=== PATIENT | male | born 2000 | race Two or more races ===

== ENCOUNTER 2021-12-18 00:13 | Emergency (ER) | payer OTHER ==
[~2021-12-18] VITALS: Ht 185.4 cm; Wt 81.6 kg
[2021-12-18 01:17] VITALS: BP 106/87
[2021-12-18] MEDS ORDERED: GLUCAGON HYDROCHLORIDE (RDNA) 1 MG VIAL IV ONE ×2 (02:15→04:00)
== END 2021-12-18 06:22 | disposition home or self-care (01) ==
LOC: EDSEX 00:13 → ER 00:13
DX: T18.128A Food in esophagus causing other injury, initial encounter (principal); W22.8XXA Striking against or struck by other objects, initial encounter; Y93.89 Activity, other specified; Y92.89 Other specified places as the place of occurrence of the external cause; Y99.8 Other external cause status
CPT/HCPCS: 70490; 96374; 96376; 99284; J1610

== ENCOUNTER 2021-12-26 01:25 | Emergency (ER) | payer OTHER ==
[~2021-12-26] VITALS: Ht 182.9 cm; Wt 77.1 kg
[2021-12-26 02:20] VITALS: BP 137/88
[2021-12-26] MEDS ORDERED: PANTOPRAZOLE 40 MG TAB PO ONE (02:30)
[2021-12-26] MEDS ORDERED: ALPRAZolam 0.25 MG TAB PO ONE (02:30)
[2021-12-26] MEDS ORDERED: OMEP20TA PO (03:24)
== END 2021-12-26 04:11 | disposition home or self-care (01) ==
LOC: ER 01:25
DX: K21.9 Gastro-esophageal reflux disease without esophagitis (principal); T18.108D Unspecified foreign body in esophagus causing other injury, subsequent encounter; Z79.899 Other long term (current) drug therapy; X58.XXXD Exposure to other specified factors, subsequent encounter
CPT/HCPCS: 70490

== ENCOUNTER 2023-03-28 02:49 | Emergency (ER) | payer OTHER ==
[~2023-03-28] VITALS: Ht 182.9 cm; Wt 67.6 kg
[~2023-03-28 02:49] MED LIST: OMEP20TA PO
[2023-03-28 03:21] LABS: Basophils # (auto) 0.1 10 ^3/uL (0-0.2); Eosinophils # (auto) 0.2 10 ^3/uL (0-0.8); Eosinophils % (auto) 1.8 % (0.0-7.0); Hematocrit 46.4 % (41.0-53.0); Hemoglobin 16.2 g/dL (13.5-17.5); Lymphocytes # (auto) 4.5 10 ^3/uL (0.4-5.4); Lymphocytes % (auto) 48.2 % (10.0-50.0); Mean Corpuscular Hemoglobin 30.3 pg (28.0-32.0); Mean Corpuscular Volume 86.7 fL (80.0-100.0); Monocytes # (auto) 0.6 10 ^3/uL (0-1.3); Monocytes % (auto) 6.8 % (0.0-12.0); Neutrophils % (auto) 42.2 % (37.0-80.0); Nucleated Red Blood Cells % 0.2 %; Red Blood Cells 5.35 10^6/uL (4.5-5.90); Red Cell Distribution Width 13.3 % (11.8-14.3); White Blood Cell 9.4 10^3/uL (4.4-10.8)
[2023-03-28 03:39] LABS: Albumin 5.2 g/dL (3.4-5.0); Calcium 9.8 mg/dL (8.5-10.1); Potassium 3.3 mmol/L (3.5-5.1)
[2023-03-28 03:43] LABS: BUN/Creatinine Ratio 9.2 (10.0-20.0)
[2023-03-28 05:53] VITALS: BP 119/84
[2023-03-28] MEDS ORDERED: POTASSIUM EFFERVESENT TAB 25 MEQ PO ONE (06:00)
[2023-03-28 06:52] LABS: Urine Bacteria NONE SEEN /hpf (None Seen); Urine Blood Negative /uL (Negative); Urine Mucus FEW (None Seen); Urine Specific Gravity 1.022 (1.001-1.035); Urine Sperm PRESENT /hpf (None Seen); Urine WBC 1 /hpf (0 - 3)
== END 2023-03-28 06:01 | disposition home or self-care (01) ==
LOC: ER 02:49
DX: N43.3 Hydrocele, unspecified (principal); E87.6 Hypokalemia
CPT/HCPCS: 36415; 74176; 76870; 80053; 81001; 85025

== ENCOUNTER 2024-11-12 01:14 | Emergency (ER) | payer MEDICAID, OTHER ==
[~2024-11-12] VITALS: Ht 185.4 cm; Wt 70.8 kg
[2024-11-12 02:57] LABS: Alanine Aminotransferase 23 U/L (7-40); Alkaline Phosphatase 92 U/L (46-116); Anion Gap 8 (5-15); Aspartate Aminotransferase 17 U/L (13-40); BUN/Creatinine Ratio 13.1 (10.0-20.0); Blood Urea Nitrogen 11 mg/dL (9-23); Carbon Dioxide 26 mmol/L (20-31); Chloride 105 mmol/L (98-107); Potassium 3.7 mmol/L (3.5-5.1); Sodium 139 mmol/L (136-145); Total Protein 7.8 g/dL (5.7-8.2)
[2024-11-12 02:59] LABS: Basophils # (auto) 0.1 10 ^3/uL (0-0.2); Basophils % (auto) 0.8 % (0.0-2.0); Eosinophils # (auto) 0.4 10 ^3/uL (0-0.8); Eosinophils % (auto) 3.9 % (0.0-7.0); Hematocrit 48.3 % (41.0-53.0); Hemoglobin 16.5 g/dL (13.5-17.5); Lymphocytes # (auto) 4.6 10 ^3/uL (0.4-5.4); Lymphocytes % (auto) 42.9 % (10.0-50.0); Mean Corpuscular Hgb Conc. 34.2 g/dL (32.0-36.0); Mean Corpuscular Volume 90.5 fL (80.0-100.0); Monocytes % (auto) 9.1 % (0.0-12.0); Neutrophils # (auto) 4.6 10 ^3/uL (1.6-8.6); Neutrophils % (auto) 43.3 % (37.0-80.0); Nucleated Red Blood Cells % 0.1 %; Platelet Count (auto) 322 10^3/uL (140-450); Red Blood Cells 5.34 10^6/uL (4.5-5.90); Red Cell Distribution Width 12.7 % (11.8-14.3); White Blood Cell 10.7 10^3/uL (4.4-10.8)
[2024-11-12 03:02] LABS: Albumin 5.3 g/dL (3.2-4.8); Calcium 10.7 mg/dL (8.7-10.4); Glucose 117 mg/dL (74-106)
[2024-11-12] MEDS ORDERED: ZOFR4T PO (05:25)
--- NOTE | 2024-11-12 05:25 | ED.PDOC ---
General HPI Comments 23-year-old male presents with 3 hours of right upper quadrant abdominal pain associated with some nausea. Patient reports the pain is now relieved. The pain was 4/10 and achy in nature. Denies any fever chills or diarrhea. Chief Complaint: Abdominal Pain Time Seen by MD: 01:24 Allergies: Coded Allergies: NO KNOWN ALLERGIES (Unverified , 12/18/21) Home Meds Active Scripts Omeprazole (Gnp Omeprazole) 20 Mg Tab, 1 TAB PO DAILY, #30 TAB 0 Refills Prov:VERN DUVAL 12/26/21 Mode of Arrival: Ambulatory Past Medical History PAST MEDICAL HISTORY: Denies Surgical History: Denies all surgeries Family History Family History: Reviewed,noncontributory to illness, No family hx of Cancer, No family hx of DM, No family hx of Heart zahra, No family hx of HTN, No family hx ofKidney zahra, No family hx of Liver zahra, No family hx of Lung zahra, No family hx of Stroke Social History Smoker: Non-Smoker Alcohol: Denies ETOH Use Drugs: Denies Drug Use Lives In: Home Physical Exam General Appearance: No Apparent Distress, Normal HEENT: Normal ENT Inspection, Pharynx Normal, TMs Normal Neck: Full Range of Motion, Non-Tender, Normal, Normal Inspection Respiratory: Chest Non-Tender, Lungs Clear, No Accessory Muscle Use, No Respiratory Distress, Normal Breath Sounds Cardiovascular: No Edema, No JVD, No Murmur, No Gallop, Normal Peripheral Pulses, Regular Rate/Rhythm Breast Exam: Deferred Gastrointestinal: No Organomegaly, Non Tender, No Pulsatile Mass, Normal Bowel Sounds, Soft Genitalia: Deferred Pelvic: Deferred Rectal: Deferred Extremities: No calf tenderness, Normal capillary refill, Normal inspection, Normal range of motion, Non-tender, No pedal edema Musculoskeletal : Apperance: Normal Neurologic: Alert, luggage attendant II-XII nml as Tested, No Motor Deficits, Normal Affect, Normal Mood, No Sensory Deficits Cerebellar Function: Normal Reflexes: Normal Skin: Dry, Normal Color, Warm Lymphatic: No Adenopathy Was a procedure done? Was a procedure done?: No Differential Diagnosis Kidney stone (Female): N/A Kidney stone (Male): N/A Penile/Scrotal: N/A Urinary Problem (Male): N/A Urinary Problem (Female): N/A Other Differential Diagnosis Viral syndrome, gastroenteritis X-Ray, Labs, Meds, VS Vital Signs Date Time Temp Pulse Resp B/P (MAP) Pulse Ox O2 Delivery O2 Flow Rate FiO2 11/12/24 01:39 99.4 102 18 128/74 (92) 97 Lab Test 11/12/24 02:29 Range/Units White Blood Count 10.7 4.4-10.8 10^3/uL Red Blood Count 5.34 4.5-5.90 10^6/uL Hemoglobin 16.5 13.5-17.5 g/dL Hematocrit 48.3 41.0-53.0 % Mean Corpuscular Volume 90.5 80.0-100.0 fL Mean Corpuscular Hemoglobin 31.0 28.0-32.0 pg Mean Corpuscular Hemoglobin Concent 34.2 32.0-36.0 g/dL Red Cell Distribution Width 12.7 11.8-14.3 % Platelet Count 322 140-450 10^3/uL Mean Platelet Volume 7.1 6.9-10.8 fL Neutrophils (%) (Auto) 43.3 37.0-80.0 % Lymphocytes (%) (Auto) 42.9 10.0-50.0 % Monocytes (%) (Auto) 9.1 0.0-12.0 % Eosinophils (%) (Auto) 3.9 0.0-7.0 % Basophils (%) (Auto) 0.8 0.0-2.0 % Neutrophils # (Auto) 4.6 1.6-8.6 10 ^3/uL Lymphocytes # (Auto) 4.6 0.4-5.4 10 ^3/uL Monocytes # (Auto) 1.0 0-1.3 10 ^3/uL Eosinophils # (Auto) 0.4 0-0.8 10 ^3/uL Basophils # (Auto) 0.1 0-0.2 10 ^3/uL Nucleated Red Blood Cells 0.1 % Sodium Level 139 136-145 mmol/L Potassium Level 3.7 3.5-5.1 mmol/L Chloride Level 105 98-107 mmol/L Carbon Dioxide Level 26 20-31 mmol/L Anion Gap 8 5-15 Blood Urea Nitrogen 11 9-23 mg/dL Creatinine 0.84 0.700-1.30 mg/dL Glomerular Filtration Rate Calc 124 >90 mL/min BUN/Creatinine Ratio 13.1 10.0-20.0 Serum Glucose 117 H 74-106 mg/dL Calcium Level 10.7 H 8.7-10.4 mg/dL Total Bilirubin 1.0 0.2-1.0 mg/dL Aspartate Amino Transferase (AST) 17 13-40 U/L Alanine Aminotransferase (ALT) 23 7-40 U/L Alkaline Phosphatase 92 46-116 U/L Total Protein 7.8 5.7-8.2 g/dL Albumin 5.3 H 3.2-4.8 g/dL Time of 1ST Reevaluation: 05:24 Reevaluation 1ST: Improved Patient Education/Counseling: Diagnosis, Treatment Family Education/Counseling: No Family Present Departure 1 Departure Time of Disposition: 05:24 (Patient's workup is benign. He likely has gastroenteritis. We will discharge patient home with outpatient follow up) Impression: Primary Impression: Acute gastroenteritis Disposition: 01 HOME / SELF CARE / HOMELESS Condition: Stable Additional Instructions: You likely have gastroenteritis. It is important to stay well hydrated and well rested. This usually resolves within 1 week. If your symptoms worsen or you have any other concerns please return to the ER. e-Prescriptions Ondansetron Odt 4MG Tab (ZOFRAN PO) 4 Mg Tb 4 MG PO QID PRN for 4 Days, #16 TAB ODT TAB-DISSOLVE IN MOUTH, THEN SWALLOW Prov: JULIOCESAR ALCANTAR MD 11/12/24 Discharged With: Self Critical Care Note Critical Care Time?: No Stability Stability form required: No JULIOCESAR ALCANTAR MD Nov 12, 2024 05:25
[2024-11-12 05:52] VITALS: BP 117/72; PULSE 55; RESP 16; TEMP 97.6; O2SAT 99
[2024-11-12 06:00] LABS: Urine Bacteria None Seen /hpf (None Seen)
[2024-11-12 06:43] LABS: Urine Blood Negative /uL (Negative); Urine Clarity Clear (Clear); Urine Color Yellow (Yellow); Urine Hyaline Cast FEW /lpf (0 - 2); Urine Mucus FEW (None Seen); Urine Protein, UAD TRACE (Negative); Urine Urobilinogen 2 mg/dL (Negative); Urine WBC 1 /hpf (0 - 3)
== END 2024-11-12 06:00 | disposition home or self-care (01) ==
LOC: ER 01:14
DX: K52.9 Noninfective gastroenteritis and colitis, unspecified (principal); Z79.899 Other long term (current) drug therapy
CPT/HCPCS: 36415; 80053; 81001; 85025

== ENCOUNTER 2025-04-20 00:37 | Emergency (ER) | payer MEDICAID ==
[~2025-04-20] VITALS: Ht 185.4 cm; Wt 70.3 kg
[~2025-04-20 00:37] MED LIST changes: +ZOFR4T PO
[2025-04-20] MEDS: KETOROLAC TROMETH 60MG/2ML VIAL IM ONE (01:23)
[2025-04-20] MEDS: DexAMETHasone SOD PHOS 10MG/1ML VIAL INJ IM ONE (01:23)
[2025-04-20 01:27] VITALS: O2SAT 98
[2025-04-20 02:06] VITALS: TEMP 97.8
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
[2025-04-20] MEDS ORDERED: SUMA25TA2 PO (04:19)
[2025-04-20 04:28] VITALS: BP 128/63; PULSE 61; RESP 18; O2SAT 98
== END 2025-04-20 04:30 | disposition home or self-care (01) ==
LOC: ER 00:37
DX: R51.9 Headache, unspecified (principal)
CPT/HCPCS: 96372; 99284; J1100; J1885